=== PATIENT | male | born 1995 ===

== ENCOUNTER 2017-09-01 23:30 | Emergency (ER) | payer SELFPAY ==
[~2017-09-01] VITALS: Ht 165.1 cm; Wt 79.4 kg
[2017-09-02 05:19] VITALS: BP 125/65
== END 2017-09-02 05:20 | disposition home or self-care (01) ==
LOC: ED 23:30
DX: F10.129 Alcohol abuse with intoxication, unspecified (principal); F12.929 Cannabis use, unspecified with intoxication, unspecified
CPT/HCPCS: Q0162